=== PATIENT | female | born 1990 | race Caucasian/White ===

== ENCOUNTER 2017-10-26 11:52 | Emergency (ER) | END 2017-10-26 14:43 | disposition home or self-care (01) ==

== ENCOUNTER 2017-11-03 22:40 | Outpatient (CLI) | END 2017-11-04 02:30 | disposition home or self-care (01) ==

== ENCOUNTER 2017-11-11 06:00 | Inpatient (IN) | END 2017-11-14 13:29 | disposition home or self-care (01) | DRG 775 ==